=== PATIENT | female | born 2000 | race African-American/Black ===

== ENCOUNTER 2022-12-02 20:14 | Emergency (ER) | payer OTHER ==
[2022-12-02 21:42] LABS: #Lymphocytes 2.3 thou/uL (1.20-3.40); #Monocytes 0.6 thou/uL (0.11-0.59); #Neutrophils 7.5 thou/uL (1.40-6.50); %Basophils 0.1 % (0.0-1.0); %Eosinophils 0.1 % (0.0-10.0); %Monocytes 5.5 % (0.0-10.0); %Neutrophils 72.3 % (42.0-75.0); Hemoglobin 14.6 g/dL (12.0-16.0); Mean Corpuscular HGB CONC 34.4 g/dL (32.0-36.0); Mean Corpuscular Hemoglobin 29.4 pg (27.0-31.0); Mean Corpuscular Volume 85.5 fl (78.0-98.0); Mean Platelet Volume 7.5 fL (7.4-10.4); Platelet Count 369 10x3/uL (130-400); RBC Distribution Width 12.3 % (11.5-14.5); Red Blood Cell (RBC) Count 4.96 mill/uL (4.20-5.40); White Blood Cell (WBC) Count 10.4 10x3/uL (4.8-10.8)
[2022-12-02 22:01] LABS: ALT (SGPT) 13 U/L (8-55); AST (SGOT) 13 U/L (5-34); Albumin 4.4 g/dL (3.5-5.0); Alkaline Phosphatase 75 U/L (40-110); Anion Gap 12 mmol/L (10-20); BUN (Urea Nitrogen) 13 mg/dL (7.0-18.7); Bilirubin, Total 0.2 mg/dL (0.2-1.2); Calc. Creatinine Clearance 0 mL/min (70-130); Calcium 9.8 mg/dL (7.8-10.44); Carbon Dioxide 27 mmol/L (22-29); Chloride 105 mmol/L (98-107); Estimated GFR 85; Globulin 3.2 g/dL (2.4-3.5); Glucose 101 mg/dL (70-105); Potassium 3.4 mmol/L (3.5-5.1); Protein, Total 7.6 g/dL (6.0-8.3); Sodium 141 mmol/L (136-145)
[2022-12-02 22:04] LABS: BHCG - Serum Negative (NEGATIVE); Pregs Control Background? CLEAR/WHITE (CLR/WHITE); Pregs Control Bar Appear? YES (CONTROL BAR)
[2022-12-03] MEDS ORDERED: Morphine 4 MG/ML VIAL ONE (01:04)
== END 2022-12-03 02:04 | disposition home or self-care (01) ==
LOC: ERS 20:14
DX: S16.1XXA Strain of muscle, fascia and tendon at neck level, initial encounter (principal); V43.52XA Car driver injured in collision with other type car in traffic accident, initial encounter; W22.10XA Striking against or struck by unspecified automobile airbag, initial encounter
CPT/HCPCS: 70450; 72125; 72131; 80053; 84703; 85025; 96374; J2270

== ENCOUNTER 2023-03-24 18:15 | Emergency (ER) | payer OTHER ==
[2023-03-24] MEDS ORDERED: Ibuprofen 200 MG TAB ONE (19:32)
== END 2023-03-24 19:38 | disposition home or self-care (01) ==
LOC: ERS 18:15
DX: M25.572 Pain in left ankle and joints of left foot (principal)

== ENCOUNTER 2023-11-09 08:02 | Emergency (ER) | payer OTHER | END 2023-11-09 08:30 | disposition home or self-care (01) | LOC: ERS 08:02 | DX: M72.2 Plantar fascial fibromatosis (principal) | CPT/HCPCS: 99283 ==

== ENCOUNTER 2024-01-26 08:43 | Emergency (ER) | payer OTHER ==
[2024-01-26] MEDS ORDERED: Ketorolac Tromethamine 30 MG (1 mL) VIAL ONE (08:58)
[2024-01-26] MEDS ORDERED: Acetaminophen 500 MG TAB ONE (08:58)
[2024-01-26] MEDS ORDERED: predniSONE 20 MG TAB ONE (09:00)
== END 2024-01-26 09:50 | disposition home or self-care (01) ==
LOC: ERS 08:43
DX: M54.50 Low back pain, unspecified (principal); G89.29 Other chronic pain
CPT/HCPCS: 96372; 99282; J1885; J7512

== ENCOUNTER 2024-05-17 17:56 | Emergency (ER) | payer OTHER ==
[2024-05-17] MEDS ORDERED: Ketorolac Tromethamine 30 MG (1 mL) VIAL ONE (19:20)
== END 2024-05-17 19:45 | disposition home or self-care (01) ==
LOC: ERS 17:56
DX: M25.512 Pain in left shoulder (principal); W19.XXXA Unspecified fall, initial encounter; Y93.01 Activity, walking, marching and hiking; Y92.524 Gas station as the place of occurrence of the external cause
CPT/HCPCS: 96372; 99283; J1885